=== PATIENT | female | born 1960 | race Two or more races ===

== ENCOUNTER 2020-06-28 08:44 | Outpatient (CLI) | payer BC, SELFPAY ==
--- NOTE | ~2020-06-28 | PE_ITS ---
EXAMINATION: PET skull to mid thigh DATE: 06/28/2020 10:59 INDICATION: Lung nodule TECHNIQUE: 9.9 mCi of 18-fluorodeoxyglucose (18-FDG) was administered i.v. Low dose computed tomograp hy (CT) images were acquired from the base of the brain to the proximal thighs for attenuation correc tion and anatomic localization. Positron emission tomography (PET) images were acquired after injecti on. Images including fused PET/CT images were reconstructed in axial, coronal, and sagittal planes. A utomatic exposure control is employed as a dose reduction technique. COMPARISON: None FINDINGS: Head/neck: No hypermetabolic activity in the neck. No significant soft tissue abnormality. No lymphadenopathy. Chest: There is a large centrally necrotic mass in the left upper lobe measuring measuring 7 x 6.5 times x4. 7 cm with intense FDG uptake. Maximum SUV is 34. There is left hilar lymphadenopathy with intense FDG uptake measuring 24.8. There are additional AP window lymph nodes with mild FDG uptake measuring max imum SUV of 3. There is reticulonodular densities surrounding the dominant mass. No endobronchial les ions. Abdomen/pelvis/proximal thighs: Gallstones. The liver, spleen, pancreas, adrenal glands and kidneys are unremarkable. There is physio logic uptake in the colon. No hypermetabolic activity. Bones/Soft tissues: There is mild diffuse FDG uptake in the pelvis without discrete lytic or blastic lesions. IMPRESSION: 1. Large centrally necrotic left upper lobe mass measuring 7 cm maximum dimension with maximum SUV of 34, compatible with primary bronchogenic carcinoma. There is metastatic disease to the left hilum an d mediastinum and possibly the pelvic bones. Consider correlation with bone scan. Reviewed, dictated and finalized at location B. IMPRESSION: 1. Large centrally necrotic left upper lobe mass measuring 7 cm maximum dimensi on with maximum SUV of 34, compatible with primary bronchogenic carcinoma. Ther e is metastatic disease to the left hilum and mediastinum and possibly the pelv ic bones. Consider correlation with bone scan.
[2020-06-28 09:15] LABS: Glucose Point of Care 150 (65-105)
== END 2020-06-28 08:45 | disposition home or self-care (01) ==
PROVIDERS: PCP Family Medicine
DX: R91.1 Solitary pulmonary nodule (principal); M89.9 Disorder of bone, unspecified; R91.8 Other nonspecific abnormal finding of lung field
CPT/HCPCS: 78815; A9552

== ENCOUNTER 2020-06-29 07:36 | Outpatient (CLI) | payer BC, SELFPAY ==
--- NOTE | 2020-07-01 11:16 | WPDPFTINT ---
PFT Interpretation PFT Interpretation: This PFT met all criteria for ATS standards and reproducibility FEV/FVC pre bronchodilator 77% FEV1 71% or 1.51 liters FVC 68% or 1.97 liters TLC 93% RV 130% RV/TLC 50% DLCO 63% when adjusted for alveolar volume but not adjusted for hemoglobin Flow volume loops were normal Impression: No significant obstruction or restriction. Some air trapping and mildly decreased diffusion capacity which can be seen in Emphysema. Clinical correlation is advised.
== END 2020-06-29 07:37 | disposition home or self-care (01) ==
PROVIDERS: PCP Family Medicine
DX: R91.1 Solitary pulmonary nodule (principal)
CPT/HCPCS: 94375; 94726; 94729